=== PATIENT | male | born 1965 | race Caucasian/White ===

== ENCOUNTER → 2018-02-24 | Outpatient (CLI) | payer MEDICAID ==
[~2018-02-24] MED LIST: NOHOMEMEDICATIONS; PRILOSEC40 MG PO; ZOFRAN ODT4 MG PO
--- NOTE | 2018-02-28 22:40 | PROC ---
[address] [address] PROCEDURE REPORT Name: ZULMA MELARA Room: [facility]#: [id number] Admission: 02/24/18 Attend Phys: Fredrick Houston MD Discharge: Date of : 63 Report #: [id number] THIS REPORT FOR: //name// CC: PAKO Fu MD DATE OF PROCEDURE: 02/24/2018 RADIATION ONCOLOGY PROCEDURE NOTE REFERRING PHYSICIANS: Include: 1. Dr. Angela Fu. 2. Dr. Arreguin. 3. Dr. Sherman. 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 PROCEDURE: Nasopharyngolaryngoscopy. FINDINGS: On nasopharyngolaryngoscopy, after application of 2% viscous lidocaine orally and 2% viscous lidocaine to the right nostril, the nasopharynx had no suspicious visible lesions. The posterior oropharynx had no suspicious visible lesions. The patient had ulcerated mucosa involving the left mid to anterior left true vocal cord and the anterior portion of the right true vocal cord. The true vocal cords appear to have normal mobility, so it is consistent with an early vocal cord cancer, a T1 N0 M0 vocal cord cancer, and the patient is being set up for treatment. <ELECTRONICALLY SIGNED> By: Fredrick Houston MD 02/28/18 2240 1233 [id number] yocasta Chavarria
--- NOTE | 2018-02-28 23:23 | CON ---
[address] [address] CONSULTATION Name: ZULMA MELARA Room: [facility]#: [id number] Admission: 02/24/18 Attend Phys: Fredrick Houston MD Discharge: Date of : 63 Report #: [id number] THIS REPORT FOR: //name// CC: Dr. PAKO Arreguin DATE OF CONSULTATION: 02/24/2018 REFERRING PHYSICIANS: Dr. Angela Fu, Dr. Arreguin and Dr. Sherman. Telephone is [phone]. 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 HISTORY OF PRESENT ILLNESS: The patient had hoarseness of the voice for approximately 4 months. He was ultimately referred to his Ear, Nose and Throat physician, Dr. Fu, and he does have a smoking history. She performed a laryngoscopy and found irregular slightly ulcerated mucosa involving the left mid cord and there was also irregular mucosa involving the anterior right true vocal cord. Those areas were biopsied and were consistent with invasive poorly differentiated squamous cell carcinoma. The patient was referred for consideration for definitive radiation therapy. PAST MEDICAL HISTORY AND PAST SURGICAL HISTORY: He had foot surgery at [facility] 02/09/2017. He had hernia surgery in 08/2017. He had back surgery in [facility] in 2000. He has arthritis. MEDICATIONS: Include losartan/hydrochlorothiazide. 7.5 mg, meloxicam per day, cyclobenzaprine, cetirizine as needed, fluticasone. He is using nicotine patches and Chantix to quit smoking, though he still smokes about 6 cigarettes per day. ALLERGIES: CODEINE CAUSES A RASH, THOUGH HE HAS TOLERATED PERCOCET IN THE PAST. FAMILY HISTORY: Mother had hypertension. SOCIAL HISTORY: The patient works in construction. He is single. He has 2 daughters. Ethanol: he drinks ethanol occasionally, in the past he drank up to 12 cans of beer a day, but he has cut back [place] [address] CONSULTATION Name: ZULMA MELARA Room: [facility]#: [id number] Admission: 02/24/18 Attend Phys: Fredrick Houston MD Discharge: Date of : 63 Report #: [id number] containing drinks occasionally. He has smoked for 25 years, about a half pack a day. He is trying to quit, and he is down to 6 cigarettes a day. REVIEW OF SYSTEMS: GENERAL: He denied having any fevers or chills. SKIN: He denied having color changes or itching. LYMPH NODES: He denied having enlarged or painful glands in the neck. ENDOCRINE: He denied having any hot or cold intolerance. HEMATOLOGY/IMMUNOLOGY: He denied having anemia or recent bleeding. MUSCULOSKELETAL: He does have arthritis in the knees, wrists, and back pain. HEAD AND NECK: He has had hoarseness of the voice for about 4-5 months. RESPIRATORY: Has a nonproductive cough that is intermittent for the last 2 months. CARDIOVASCULAR: He denied having any palpitations. GASTROINTESTINAL: He denied having nausea or vomiting. NEUROLOGIC: He denied having any focal weakness. PHYSICAL EXAMINATION: VITAL SIGNS: The patient weighed 211.2 pounds, height was 6 feet 4 inches, blood pressure 140/103, and his primary care physician just recently adjusted his antihypertensive medication; pulse 106, oxygen saturation 96%, respirations 18. LYMPH NODES: The patient had no palpable cervical or supraclavicular lymphadenopathy. EYES: Pupils were equal, round, reactive to light and accommodation. Extraocular movements wereintact. HEAD, EARS, NOSE AND THROAT: Mouth had no suspicious visible lesions or suspicious palpable lesions. On nasopharyngolaryngoscopy, after application of a small amount of 2% viscous lidocaine orally and 2% viscous lidocaine to the right nostril, there were no visible lesions in the nasopharynx or posterior oropharynx. The true vocal cords were normally mobile bilaterally with an ulcerated lesion involving the mid left true vocal cord, and the anterior right true vocal cord and the anterior commissure. HEART: Had a regular rate and rhythm without murmur. LUNGS: were clear to auscultation. ABDOMEN: Not tender. Spleen was not palpable. Liver was at the costal margin. EXTREMITIES: Had no clubbing, cyanosis or edema. NEUROLOGIC: Cranial nerves II to XII are intact. Sensation was intact. The patient had 5/5 strength in his extremities. RADIOLOGIC DATA: The patient had a neck CT done on 02/02/2018, which showed [address] [address] CONSULTATION Name: ZULMA MELARA [id number] Admission: 02/24/18 Attend Phys: Fredrick Houston MD Discharge: Date of : 63 Report #: [id number] mild asymmetric soft tissue thickening of the left vocal cord. There was no cervical lymphadenopathy. 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 The patient was told that his treatment options are definitive radiation therapy, reserving surgery for salvage versus surgical resection and using radiation therapy as an adjuvant treatment when indicated. The efficacy of radiation therapy for early vocal cord cancer can be found in the study by [employer]. In that study they had 180 patients and the patients who received 2 Gy a day for approximately 6 weeks had a local control rate of 77%, and when they received a higher dose per day, which was 225 cGy per day, the local control rate went up to 92%. So, the risks, benefits and logistics of radiation therapy were discussed with the patient in detail; he gave his witnessed, informed consent to proceed with radiation therapy. He will be scheduled for simulation. He was encouraged to quit smoking. Thank you very much for this consult. <ELECTRONICALLY SIGNED> By: Fredrick Houston MD 02/28/18 2323 1240 [id number] Houston MD /nt
== END ==
LOC: M.RTH 04:32
DX: Z08 Encounter for follow-up examination after completed treatment for malignant neoplasm (principal); C32.9 Malignant neoplasm of larynx, unspecified

== ENCOUNTER → 2018-08-27 | Outpatient (CLI) | payer MEDICAID ==
--- NOTE | ~2018-08-27 | ONC ---
[address] [address] RADIATION ONCOLOGY NOTE Name: ZULMA MELARA Room: [facility]#: [id number] Admission: 08/27/18 Attend Phys: Fredrick Houston MD Discharge: Date of : 63 Report #: [id number] THIS REPORT FOR: //name// CC: PAKO Houston DATE OF SERVICE: 08/27/2018 REFERRING PHYSICIANS: Angela Fu MD. Dr. Sherman. Dr. Arreguin. 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 He completed definitive radiation therapy on 04/23/2018. INTERVAL NOTE: The patient's voice has a good quality. He is eating regular foods. He continues to smoke and then he says sometimes he will get a throat irritation that may cause some mild discomfort when he swallows. He says he is getting upper dentures on 09/06/2018. He does have his lower teeth. He says he is due to see Dr. Fu in the next few days. MEDICATIONS: Losartan and ibuprofen. SOCIAL HISTORY: Cigarettes: The patient continues to smoke about 5-6 cigarettes a day and he had smoked about a half a pack of cigarettes a day since about 1994. REVIEW OF SYSTEMS: GASTROINTESTINAL: He has a good appetite. He is eating a regular diet. RESPIRATORY: He was not short of breath. PHYSICAL EXAMINATION: VITAL SIGNS: The patient weighed 206 pounds on 08/27/2018. He was 215 pounds and 12 ounces on 05/07/2018. On 08/27/2018, blood pressure is 105/74, pulse 94, respirations 16, oxygen saturation 98%. LYMPH NODES: He had no cervical, supraclavicular lymphadenopathy. HEAD, EYES, EARS, NOSE, AND THROAT: Mouth had no suspicious visible lesions or suspicious palpable lesions. On nasopharyngolaryngoscopy, after application of a small amount of 2% viscous lidocaine orally and 2% viscous lidocaine to the right nostril via cotton swab, there were no suspicious visible lesions in the nasopharynx or posterior oropharynx. True vocal cords were normally mobile bilaterally without any visible lesions. HEART: Had a regular rate and rhythm without murmur. LUNGS: [place] [address] RADIATION ONCOLOGY NOTE Name: ZULMA MELARA Room: [facility]#: [id number] Admission: 08/27/18 Attend Phys: Fredrick Houston MD Discharge: Date of : 63 Report #: [id number] LABORATORY DATA: From 08/10/2018, hemoglobin was 15.3, platelets were 318,000, white blood cell count was 4.2 and sodium was 134, potassium was 3.2. TSH was 0.26, free T4 was 1.1. RADIOLOGIC DATA: He had a neck and chest CT on 08/10/2018 and that revealed no local tumor recurrence in the neck. Chest had no new enlarging pulmonary nodules. He has mild right hilar lymphadenopathy which was thought to be reactive and continued attention on followup imaging was recommended. ASSESSMENT AND PLAN: 1. History of true vocal cord cancer. There is no evidence of vocal cord cancer at this time. The patient indicated he was seeing his ear, nose and throat physician, Dr. Fu, in a few days. He was given a requisition for basic metabolic panel, a TSH in 10/2018 and a neck and chest CT will be ordered as well and he will be asked to follow up with me afterwards. 2. Cigarette smoking. The patient was urged to quit smoking cigarettes. Again, his TSH was 0.26 on 08/10/2018, so it was not elevated. 3. Nutrition. He said his weight was stable at this time that he is eating well. So, I am assuming that is going to stabilize. 4. Hypokalemia. The patient was prescribed 20 mEq potassium supplements on 08/10/2018 and he was told to increase his intake of potassium rich foods such as sweet potatoes, potatoes with skins, bananas and a basic metabolic panel was ordered in 3 months. He was asked to follow up with me afterwards. Thank you for allowing me to participate in the care of this patient. By: 1111 0034Dsarah Houston MD /shannon
--- NOTE | ~2018-08-27 | ONC ---
[place] [address] RADIATION ONCOLOGY NOTE Name: ZULMA MELARA Room: [facility]#: [id number] Admission: 08/27/18 Attend Phys: Fredrick Houston MD Discharge: Date of : 63 Report #: [id number] THIS REPORT FOR: //name// CC: PAKO Houston DATE OF SERVICE: 08/27/2018 REFERRING PHYSICIANS: Angela Fu MD. Dr. Arreguin. Dr. Jeffers. 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 The radiation treatments were completed on 04/23/2018. PROCEDURE: Nasopharyngolaryngoscopy. FINDINGS: On nasopharyngolaryngoscopy, after application of 2% viscous lidocaine orally and 2% viscous lidocaine to the right nostril, the nasopharynx had no suspicious visible lesions and the posterior oropharynx had no suspicious visible lesions. The true vocal cords were normally mobile bilaterally. There were no suspicious visible lesions involving the vocal cords. There is no evidence of head and neck cancer. Thank you for allowing me to participate in the care of this patient. By: 1101 0017Fredrick Houston MD /nt
== END ==
LOC: M.RTH 09:55
DX: Z08 Encounter for follow-up examination after completed treatment for malignant neoplasm (principal); E87.6 Hypokalemia; F17.200 Nicotine dependence, unspecified, uncomplicated; Z85.818 Personal history of malignant neoplasm of other sites of lip, oral cavity, and pharynx

== ENCOUNTER → 2018-12-03 | Outpatient (CLI) | payer MEDICAID ==
--- NOTE | 2018-12-11 18:23 | ONC ---
[place] [address] RADIATION ONCOLOGY NOTE Name: ZULMA MELARA Room: [facility]#: [id number] Admission: 12/03/18 Attend Phys: Fredrick Houston MD Discharge: Date of : 63 Report #: [id number] THIS REPORT FOR: //name// CC: Dr. Enrique Arreguin DATE OF PROCEDURE: 12/03/2018 REFERRING PHYSICIAN: Dr. Arreguin and Dr. Angela Fu. PRIMARY CARE PHYSICIAN: Dr. Enrique Sherman [facility], phone is [phone]. PRIMARY SITE AND HISTOPATHOLOGY: The patient received definitive radiation therapy for a T1N0M0 true vocal cord cancer. Radiation treatments were completed on 04/23/2018. PROCEDURE: Nasopharyngolaryngoscopy. FINDINGS: On nasopharyngolaryngoscopy, after application of 2% viscous lidocaine orally and 2% viscous lidocaine to the right nostril, the nasopharynx had no suspicious visible lesions and the posterior oropharynx had no suspicious visible lesions. The true vocal cords were normally mobile bilaterally. There were no suspicious visible lesions involving the vocal cords. There was no evidence of head and neck cancer. Thank you for allowing me to participate in the care of this patient. <ELECTRONICALLY SIGNED> By: Fredrick Houston MD 12/11/18 1823 1104 0307MD yocasta Chavarria
--- NOTE | 2018-12-11 19:01 | ONC ---
[place] [address] RADIATION ONCOLOGY NOTE Name: ZULMA MELARA Room: [facility].#: [id number] Admission: 12/03/18 Attend Phys: Fredrick Houston MD Discharge: Date of : 63 Report #: [id number] THIS REPORT FOR: //name// CC: Dr. Enrique Arreguin DATE OF SERVICE: 12/03/2018 REFERRING PHYSICIANS: Dr. Angela Fu; Dr. Zulma Arreguin; Dr. Enrique Sherman. [facility] phone is [phone]. 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 He completed definitive radiation therapy on 04/23/2018. INTERVAL NOTE: The patient has a good voice quality. He is eating a regular diet. He is transitioning to electronic cigarettes to try to avoid tobacco. He says that he does have some sinus issues and that he will be seeing his ear, nose and throat physician, Dr. Fu, later this month. Overall he feels good. He was scheduled to get his upper dentures earlier this year. MEDICATIONS: Cetirizine, losartan and ibuprofen as needed. SOCIAL HISTORY: Cigarettes; he is transitioning to electronic cigarettes. He has smoked about 1/2 a pack to a pack per day since about 1994. REVIEW OF SYSTEMS: GASTROINTESTINAL: He has a good appetite, he is eating a regular diet. RESPIRATORY: He was not short of breath during his appointment. PHYSICAL EXAMINATION: VITAL SIGNS: The patient weighed 205 pounds on 12/03/2018. He was 206 pounds on 08/27/2018. On 12/03/2018, pulse was 85, respirations 20, oxygen saturation 98% and blood pressure 140/84. LYMPH NODES: He had no palpable cervical or supraclavicular lymphadenopathy. HEAD, EYES, EARS, NOSE AND THROAT: Mouth had no suspicious visible lesions or suspicious palpable lesions. On nasopharyngolaryngoscopy, after application of a small amount of 2% viscous lidocaine orally and 2% viscous lidocaine to the right nostril via a cotton swab, there are no suspicious visible lesions in the nasopharynx or posterior pharynx. The true vocal cords were normally mobile bilaterally [place] [address] RADIATION ONCOLOGY NOTE Name: ZULMA MELARA Room: [facility]#: [id number] Admission: 12/03/18 Attend Phys: Fredrick Houston MD Discharge: Date of : 63 Report #: [id number] HEART: Had a regular rate and rhythm without murmur. LUNGS: were clear to auscultation. LABORATORY DATA: From 11/08/2018; sodium was 135; potassium 3.3, it was 3.2 on 08/10/2018. On 11/08/2018, BUN was 19, creatinine was 1.2 and TSH was 0.39. RADIOLOGIC DATA: Neck and chest CT from 11/08/2018; neck had no evidence of local tumor recurrence or cervical lymphadenopathy. Chest had no new enlarging pulmonary nodules. There was no significant thoracic lymphadenopathy. ASSESSMENT AND PLAN: 1. History of true vocal cord cancer- There is no evidence of true vocal cord cancer at this time. The patient indicated he was seeing Dr. Fu later this month. A Basic metabolic panel was ordered in 01/2019. The patient was asked to schedule a follow-up appointment to see me after the january lab work was complete. 2. Cigarette smoking- The patient is transitioning to electronic cigarettes. He was urged to quit smoking cigarettes. 3. Hypokalemia-The patient was given a prescription for potassium supplements to take for the next 5 days. He was encouraged to increase his intake of potassium rich foods such as potatoes with skins, sweet potatoes and bananas. He was referred to his primary care physician, Dr. Sherman, to manage this issue and a basic metabolic panel was ordered in 01/2019 as well as a TSH and he was asked to schedule a follow up appointment with me afterwards. 4. A small retention cyst in the left maxillary sinus found on his neck CT -- the patient will be seeing his ear, nose, throat physician, Dr. Angela Fu to manage this issue. Thank you for allowing me to participate in the care of this patient. <ELECTRONICALLY SIGNED> By: Fredrick Houston MD 12/11/18 1901 [id number] Houston MD /nt
== END ==
LOC: M.RTH 04:48
DX: Z08 Encounter for follow-up examination after completed treatment for malignant neoplasm (principal); E87.6 Hypokalemia; F17.210 Nicotine dependence, cigarettes, uncomplicated; J34.1 Cyst and mucocele of nose and nasal sinus; Z85.21 Personal history of malignant neoplasm of larynx

== ENCOUNTER → 2019-02-25 | Outpatient (CLI) | payer MEDICAID ==
--- NOTE | ~2019-02-25 | ONC ---
[place] [address] RADIATION ONCOLOGY NOTE Name: ZULMA MELARA Room: [facility]#: [id number] Admission: 02/25/19 Attend Phys: Fredrick Houston MD Discharge: Date of : 63 Report #: [id number] THIS REPORT FOR: //name// CC: Enrique Houston DATE OF SERVICE: 02/25/2019 REFERRING PHYSICIANS: Angela Fu MD; Zulma Arreguin DPM; Enrique Sherman MD [facility] phone is [phone]. 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 He completed definitive radiation therapy on 04/23/2018. INTERVAL NOTE: The patient has stable, good voice quality. He is eating a regular diet. Sometimes smokes electronic cigarettes. He avoids regular cigarettes. He continues to follow up with his ear, nose, throat physician, Dr. Angela Fu. He was found to have a low potassium, so he was prescribed potassium supplements and encouraged to increase the potassium intake in his diet. MEDICATIONS: Cetirizine, losartan, and ibuprofen as needed. SOCIAL HISTORY: Cigarettes, he does not smoke cigarettes at this time. He sometimes ____ electronic cigarettes. He quit smoking around earlier part of 2018. He used to smoke about a half pack a day from about 7916-4399. REVIEW OF SYSTEMS: GASTROINTESTINAL: He has a good appetite. He is eating a regular diet. RESPIRATORY: He was not short of breath during his appointment. PHYSICAL EXAMINATION: VITAL SIGNS: The patient weighed 211.4 pounds on 02/25/2019 and 205 pounds on 12/03/2018 and on 02/25/2019 blood pressure was 105/80, pulse 96, respirations 18, and oxygen saturation 93%. LYMPH NODES: He had no palpable cervical or supraclavicular lymphadenopathy. HEAD, EYES, EARS, NOSE, THROAT: Mouth has no suspicious visible lesions or suspicious palpable lesions. On nasopharyngolaryngoscopy, after application of a small amount of 2% viscous lidocaine orally and 2% viscous lidocaine to the right nostril via cotton swab, there were no visible lesions in the nasopharynx or posterior pharynx. True vocal cords are normally mobile bilaterally. HEART: Had a regular rate and rhythm, without murmur. LUNGS: [place] [address] RADIATION ONCOLOGY NOTE Name: ZULMA MELARA Room: [facility]#: [id number] Admission: 02/25/19 Attend Phys: Fredrick Houston MD Discharge: Date of : 63 Report #: [id number] LABORATORY DATA: From 02/18/2019, sodium was 136, potassium was 2.8, BUN 9, and creatinine 0.91. TSH was 0.32, free T4 was 0.7. He then was prescribed potassium supplements and his metabolic panel was repeated on 02/23/2019 and his sodium was 139, potassium was 3.8, BUN 9, and creatinine 0.94. RADIOLOGIC DATA: He had a neck and chest CT on 11/08/2018. Neck CT did reveal no evidence of local tumor recurrence or cervical lymphadenopathy. Chest CT showed no new enlarging pulmonary nodules. No significant thoracic lymphadenopathy. ASSESSMENT AND PLAN: 1. History of true vocal cord cancer. There is no evidence of true vocal cord cancer at this time. The patient indicated he is seeing his ear, nose, throat physician, Dr. Fu in 02/2019 and he was given a requisition for basic metabolic panel and a TSH in 05/2019. He is asked to schedule a followup appointment to see me afterwards. 2. Hypertension. The patient takes losartan and that is managed by his referring physicians. 3. Hypokalemia. The patient was given potassium supplements and his potassium normalized. He was encouraged to increase his intake of potassium rich foods in his diet and he was going to be seeing his primary care physician in about 5 days. Thank you for allowing me to participate in the care of this patient. By: 1216 0043Dsarah Houston MD /shannon
--- NOTE | ~2019-02-25 | ONC ---
[place] [address] RADIATION ONCOLOGY NOTE Name: ZULMA MELARA Room: [facility]#: [id number] Admission: 02/25/19 Attend Phys: Fredrick Houston MD Discharge: Date of : 63 Report #: [id number] THIS REPORT FOR: //name// CC: Enrique Houston DATE OF SERVICE: 02/25/2019 RADIATION/ONCOLOGY PROCEDURE NOTE REFERRING PHYSICIANS: Dr. Enrique Sherman, Dr. Angela Fu and Dr. Arreguin. 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 Radiation treatments were completed on 04/23/2018. PROCEDURE: Nasopharyngolaryngoscopy. FINDINGS: On nasopharyngolaryngoscopy after application of 2% viscous lidocaine orally and 2% viscous lidocaine to the right nostril, nasopharynx had no suspicious visible lesions and the posterior oropharynx had no suspicious visible lesions. True vocal cords are normally mobile bilaterally. There were no suspicious visible lesions involving the vocal cords. There was no evidence of head and neck cancer. Thank you for allowing me to participate in the care of this patient. By: 1119 2318Fredrick Houston MD /nt
== END ==
LOC: M.RTH 04:42
DX: Z08 Encounter for follow-up examination after completed treatment for malignant neoplasm (principal); I10 Essential (primary) hypertension; E87.6 Hypokalemia; Z85.21 Personal history of malignant neoplasm of larynx; Z87.891 Personal history of nicotine dependence

== ENCOUNTER → 2019-06-17 | Outpatient (CLI) | payer MEDICAID ==
--- NOTE | ~2019-06-17 | ONC ---
[place] [address] RADIATION ONCOLOGY NOTE Name: ZULMA MELARA Room: [facility]#: [id number] Admission: 06/17/19 Attend Phys: Fredrick Houston MD Discharge: Date of : 63 Report #: [id number] THIS REPORT FOR: //name// CC: Dr. Enrique Arreguin from Orthopedics RADIATION-ONCOLOGY FOLLOWUP NOTE DATE OF SERVICE 06/17/2019 REFERRING PHYSICIANS: 1. Dr. Enrique Sherman. 2. Dr. Arreguin from Orthopedics. 3. Angela Fu MD. [facility], phone is [phone]. 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 He completed definitive radiation therapy on 04/23/2018. INTERVAL NOTE: The patient has a stable and fair voice quality. He always had slight hoarseness of the voice. He is eating a regular diet. He has tried to switch to electronic cigarettes from smoking regular cigarettes. He indicated that he has an appointment with his Ear, Nose, Throat physician, Dr. Angela Fu in a few weeks in 06/2019. MEDICATIONS: Losartan, cetirizine and ibuprofen as needed. SOCIAL HISTORY: Cigarettes: he does not smoke cigarettes at this time. He switched to electronic cigarettes, so he quit smoking around the middle of 2018. He used to smoke about a half pack to whole pack a day for somewhere between 1988 to 2018. REVIEW OF SYSTEMS: GASTROINTESTINAL: He has a good appetite. He is eating a regular diet. RESPIRATORY: He was not short of breath during his appointment. PHYSICAL EXAMINATION: VITAL SIGNS: The patient weighed 232 pounds on 06/17/2019 and 211.4 pounds on 02/25/2019. On 06/17/2019, blood pressure was 137/94, pulse 89, respirations 18, oxygen saturation was 96%. LYMPH NODES: The patient had no palpable cervical or supraclavicular lymphadenopathy. HEAD, EYES, EARS, NOSE AND THROAT: Mouth [place] [address] RADIATION ONCOLOGY NOTE Name: ZULMA MELARA Room: [facility]#: [id number] Admission: 06/17/19 Attend Phys: Fredrick Houston MD Discharge: Date of : 63 Report #: [id number] suspicious palpable lesions. On nasopharyngolaryngoscopy, after application of a small amount of 2% viscous lidocaine orally and 2% viscous lidocaine to the right nostril via a cotton swab, there were no visible lesions in the nasopharynx or posterior oropharynx. The true vocal cords were normally mobile bilaterally. They did have some whitish discoloration anteriorly. HEART: Had a regular rate and rhythm without murmur. LUNGS: Clear to auscultation. LABORATORY DATA: From 06/14/2019, sodium was 139, potassium was 4.2, BUN 11, creatinine 0.95. His calcium was elevated at 11.5. His TSH was lower than normal at 0.2 and his free T4 was normal at 0.7 with normal range 0.6-1.6. ASSESSMENT AND PLAN: 1. History of true vocal cord cancer. The patient has normal vocal cord mobility with some white discoloration in the anterior portion of the vocal cords. The differential for that is that it could be due to post-treatment changes from radiation therapy and that is very likely cause. Could also be due to candidiasis versus leukoplakia versus a recurrence. So, he was given a prescription for fluconazole if in case it is due to candidiasis and he said he had an appointment with his Ear, Nose and Throat physician, Dr. Fu in a few weeks in 06/2019 and I also communicated via the [employer] system to let her know about discoloration, so she can evaluate and manage that issue. Lab work will be ordered in about 4-5 months and a neck CT will be ordered and the patient will be asked to schedule a followup appointment to see me afterwards. 2. Hypertension. The patient takes losartan and that is managed by his referring physicians. 3. Hypercalcemia. The patient will be referred to Endocrinology to manage that issue. 4. Low TSH level. Again, the patient will be referred to Endocrinology to manage that issue. 5. History of cigarette smoking. A screening chest CT will be ordered in case he qualifies for that as a screening exam. Thank you for allowing me to participate in the care of this patient. By: [id number] [id number] Houston MD /shannon
--- NOTE | ~2019-06-17 | ONC ---
[place] [address] RADIATION ONCOLOGY NOTE Name: ZULMA MELARA Room: [facility]#: [id number] Admission: 06/17/19 Attend Phys: Fredrick Houston MD Discharge: Date of : 63 Report #: [id number] THIS REPORT FOR: //name// CC: Enrique Houston DATE OF SERVICE: 06/17/2019 REFERRING PHYSICIANS: Include Dr. Arvizu, Dr. Sanchez, Dr. Enrique Sherman. 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 Radiation treatments were completed on 04/23/2019. PROCEDURE: Nasopharyngolaryngoscopy. FINDINGS: On nasopharyngolaryngoscopy, after application of 2% viscous lidocaine orally, 2% viscous lidocaine to the right nostril, the nasopharynx had no suspicious visible lesions and the posterior oropharynx had no suspicious visible lesions and the true vocal cords are normally mobile bilaterally. The patient did have some whitish discoloration in the anterior portion of the vocal cords. This could be due to radiation therapy changes versus candidiasis versus leukoplakia. The patient indicated he is going to be seeing his ear, nose and throat physician, Dr. Murray in a few weeks to assess that area as well and he was prescribed fluconazole in case it is from candidiasis. Thank you for allowing me to participate in the care of this patient. By: 1011 1036MD yocasta Chavarria
== END ==
LOC: M.RTH 04:59
DX: Z08 Encounter for follow-up examination after completed treatment for malignant neoplasm (principal); I10 Essential (primary) hypertension; R82.994 Hypercalciuria; Z79.899 Other long term (current) drug therapy; Z87.891 Personal history of nicotine dependence

== ENCOUNTER → 2019-11-25 | Outpatient (CLI) | payer MEDICAID ==
--- NOTE | 2019-12-03 19:47 | ONC ---
[place] [address] RADIATION ONCOLOGY NOTE Name: ZULMA MELARA Room: [facility].#: [id number] Admission: 11/25/19 Attend Phys: Fredrick Houston MD Discharge: Date of : 63 Report #: [id number] THIS REPORT FOR: //name// CC: Dr. Enrique Van DATE OF SERVICE: 11/25/2019 RADIATION/ONCOLOGY PROCEDURE NOTE REFERRING PHYSICIANS: Include Zulma Arreguin DPM; Angela Fu MD and Enrique Sherman MD Also, he has been seeing Dr. Saman Van. [facility] phone is [phone]. 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 Radiation treatments were completed on 04/23/2019. PROCEDURE: Nasopharyngolaryngoscopy. FINDINGS: On nasopharyngolaryngoscopy, after application of 2% viscous lidocaine orally and 2% viscous lidocaine to the right nostril, the nasopharynx had no suspicious visible lesions and the posterior oropharynx had no suspicious visible lesions and the true vocal cords were normally mobile bilaterally. There was no evidence of true vocal cord cancer. There was no evidence of any other head and neck cancer. Thank you for allowing me to participate in the care of this patient. <ELECTRONICALLY SIGNED> By: Fredrick Houston MD 12/03/19 1947 1102 [id number] Houston MD /nt
--- NOTE | 2019-12-03 20:34 | ONC ---
[place] [address] RADIATION ONCOLOGY NOTE Name: ZULMA MELARA Room: [facility]#: [id number] Admission: 11/25/19 Attend Phys: Fredrick Houston MD Discharge: Date of : 63 Report #: [id number] THIS REPORT FOR: //name// CC: Enrique Nuñez MD DATE OF SERVICE: 11/25/2019 RADIATION/ONCOLOGY FOLLOWUP NOTE REFERRING PHYSICIANS: Include Enrique Sherman MD; Zulma rAreguin DPM from Orthopedics; and Angela Fu MD and also he has an mattress maker who is Saman Van MD [facility] phone is [phone]. 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 He completed definitive radiation therapy on 04/23/2018. INTERVAL NOTE: The patient had mild hypokalemia and he was prescribed a potassium supplement, which he finished and he was told to increase his intake of potassium-rich foods such as potatoes with skins, bananas. His voice quality is stable. He has a fair quality of his voice. He is able to eat a regular diet. He has seen his mattress maker, Dr. Alexander, at [facility] on 07/13/2019 and he was found to have low TSH levels and his free T4 was in the low normal range. He was found to be hypercalcemic. He was clinically euthyroid. The patient said that his mattress maker started him on thyroid medicine. He also checks his parathyroid hormone levels and calcium levels and the patient said he is going to be seeing his mattress maker in about 6 weeks. He said his appointment with his Ear, Nose and Throat physician, Dr. Fu, was postponed until 12/2019, partly because of the COVID-19 issue. MEDICATIONS: He takes aspirin about once a day. He takes Colace as needed. He is also taking Flexeril 10 mg 3 times a day, Flonase twice a day as needed. He takes hydrochlorothiazide/losartan 12.5 mg/50 mg oral tablets daily. He takes meloxicam 1 a day and he takes Zyrtec daily as needed. SOCIAL HISTORY: Cigarettes: He switched to electronic cigarettes in the middle of 2018. He started smoking when he was a teenager [place] [address] RADIATION ONCOLOGY NOTE Name: ZULMA MELARA Room: [facility]#: [id number] Admission: 11/25/19 Attend Phys: Fredrick Houston MD Discharge: Date of : 63 Report #: [id number] pack to a pack a day until the middle 2018 when he switched to electronic cigarettes. He says he is scheduled for a screening chest CT on 11/28/2019. REVIEW OF SYSTEMS: GASTROINTESTINAL: He has a good appetite. He is eating a regular diet. RESPIRATORY: He was not short of breath during his appointment. PHYSICAL EXAMINATION: VITAL SIGNS: The patient weighed 240 pounds on 11/25/2019 and 232 pounds on 06/17/2019. On 11/25/2019, blood pressure was 139/87, pulse 99, oxygen saturation was 98%, respirations were 20, temperature was 98 degrees Fahrenheit. LYMPH NODES: The patient had no palpable cervical or supraclavicular lymphadenopathy. HEAD, EYES, EARS, NOSE AND THROAT EXAMINATION: Mouth had no suspicious visible lesions or suspicious palpable lesions on nasopharyngolaryngoscopy. After application of a small amount of 2% viscous lidocaine orally and 2% viscous lidocaine into the right nostril via a cotton swab,there were no visible lesions in the nasopharynx or posterior oropharynx. The true vocal cords were normally mobile bilaterally and there were no suspicious visible lesions. HEART: Had a regular rate and rhythm without murmur. LUNGS: were clear to auscultation. LABORATORY DATA: From 11/07/2019, sodium was 139, potassium was 3.3, BUN 16, creatinine 0.86. TSH was less than 0.01 on 11/07/2019 and free T4 was 1.2 on 11/07/2019. RADIOLOGIC DATA: The patient had a neck CT on 11/07/2019 which revealed post-therapeutic changes in the supraglottic larynx and hypopharynx without evidence of new or recurrent neck mass or neck lymphadenopathy. ASSESSMENT AND PLAN: 1. History of true vocal cord cancer- There is no evidence of vocal cord cancer at this time. The patient indicated that he is scheduled to see his Ear, Nose, Throat physician, Dr. Fu, around 12/2019. I asked the patient to follow up with me in about 6 months. 2. Hypertension- The patient takes losartan and that is managed by his referring physicians. 3. Hypercalcemia. The patient is following up with Endocrinology with regards to this issue. 4. Low TSH levels- The patient is following up with Endocrinology to manage this issue. He said he was started on some type of thyroid medication. A TSH level will be ordered in about 6 months and the patient was asked to [place] [address] RADIATION ONCOLOGY NOTE Name: ZULMA MELARA Room: [facility].#: [id number] Admission: 11/25/19 Attend Phys: Fredrick Houston MD Discharge: Date of : 63 Report #: [id number] 5. Mild hypokalemia- The patient was given potassium supplement and told to increase his intake of potassium-rich foods to help normalize his potassium and a basic metabolic panel was ordered in about 6 months and the patient was asked to schedule a follow up appointment with me afterwards. 6. History of cigarette smoking- The patient says he is due for his screening chest CT exam on 11/28/2019. Thank you for allowing me to participate in the care of this patient. <ELECTRONICALLY SIGNED> By: Fredrick Houston MD 12/03/19 2034 1117 [id number] Houston MD /nt
== END ==
LOC: M.RTH 11-18 09:45
PROVIDERS: ATTEND Radiology Radiation Oncology
DX: Z51.0 Encounter for antineoplastic radiation therapy (principal); I10 Essential (primary) hypertension; E87.6 Hypokalemia; F17.210 Nicotine dependence, cigarettes, uncomplicated; Z79.899 Other long term (current) drug therapy; Z85.21 Personal history of malignant neoplasm of larynx

== ENCOUNTER → 2020-05-18 | Outpatient (CLI) | payer MEDICARE, MEDICAID ==
--- NOTE | 2020-05-26 22:36 | ONC ---
[place] [address] RADIATION ONCOLOGY NOTE Name: ZULMA MELARA Room: [facility]#: [id number] Admission: 05/18/20 Attend Phys: Fredrick Houston MD Discharge: Date of : 63 Report #: [id number] THIS REPORT FOR: //name// CC: Enrique Arreguin DPM DATE OF PROCEDURE: 05/18/2020 RADIATION ONCOLOGY PROCEDURE NOTE REFERRING PHYSICIANS: Dr. Alexander; Angela Fu MD; Dr. Enrique Sherman; Dr. Perry, primary care physician. He also has a doctor of Podiatry medicine, Zulma Arreguin DPM. [facility] phone is [phone]. 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 Radiation treatments were completed on 04/23/2019. PROCEDURE: Nasopharyngolaryngoscopy. FINDINGS: On nasopharyngolaryngoscopy, after application of 2% viscous lidocaine orally and 2% viscous lidocaine to the right nostril, the nasopharynx had no suspicious visible lesions and the posterior oropharynx had no suspicious visible lesions. The true vocal cords and the supraglottic area, had some supraglottic edema present, which obscured the view of that area and he also had an irregular heart rate. He was sent to the [facility] for further evaluation on the day he was seen on 05/18/2020. Thank you for allowing me to participate in the care of this patient. <ELECTRONICALLY SIGNED> By: Fredrick Houston MD 05/26/20 2236 1058 1113Dsarah Houston MD /nt
--- NOTE | 2020-05-26 22:51 | ONC ---
[place] [address] RADIATION ONCOLOGY NOTE Name: ZULMA MELARA Room: [facility]#: [id number] Admission: 05/18/20 Attend Phys: Fredrick Houston MD Discharge: Date of : 63 Report #: [id number] THIS REPORT FOR: //name// CC: Dr. Enrique Arreguin DPM DATE OF VISIT: 05/18/2020 RADIATION ONCOLOGY FOLLOWUP NOTE REFERRING PHYSICIANS: Include Dr. Enrique Sherman, Dr. Angela Fu, Dr. Perry is his primary care physician at [facility], Dr. Alexander is the custom home installer and his nurse companion is Zulma Arreguin DPM. [facility] phone is [phone]. 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 He completed definitive radiation therapy on 04/23/2018. INTERVAL NOTE: The patient indicated that he had hoarseness of the voice since about 3 weeks ago. He has also had some odynophagia as well. He did say he saw his Ear, Nose and Throat physician, Dr. Fu in 12/2019. He was started on antibiotics about 3 weeks ago. SOCIAL HISTORY: He used to smoke cigarettes when he was a teenager and he smoked half a pack a day until 2019 when he switched to electronic cigarettes. MEDICATIONS: Include Zyrtec as needed, Tylenol as needed, he got the flu vaccine and also midazolam, Benadryl as needed and he has also been on 5 mg of methimazole. His notes from 12/02/2019. REVIEW OF SYSTEMS: GASTROINTESTINAL: He lost some weight since he was last seen as mentioned earlier. He has been started on antibiotics earlier in April at [facility]. RESPIRATORY: His respirations were about 30 when he was seen today. PHYSICAL EXAMINATION: VITAL SIGNS: The patient weighed 227 pounds on 05/18/2020 and 240 pounds on 11/25/2019, on 05/18/2020 blood pressure was 120/77, pulse 96 and irregular, [place] [address] RADIATION ONCOLOGY NOTE Name: ZULMA MELARA Room: [facility]#: [id number] Admission: 05/18/20 Attend Phys: Fredrick Houston MD Discharge: Date of : 63 Report #: [id number] respirations 30, oxygen saturation 96%, temperature 97.3 degrees Fahrenheit. LYMPH NODES: The patient had some enlarged lymph nodes around the thyroid gland in the neck area that appeared to be a bit enlarged. Thyroid appeared to be enlarged. HEAD, EYES, EARS, NOSE AND THROAT: Mouth had no suspicious visible lesions or suspicious palpable lesions. On nasopharyngolaryngoscopy, after application of a small amount of 2% viscous lidocaine orally and 2% viscous lidocaine into the right nostril via a cotton swab, there were no visible lesions in the nasopharynx or posterior oropharynx. The true vocal cords and subglottic larynx did have some supraglottic edema. HEART: Had an irregular rate and rhythm. LUNGS: Had some crackles and mild wheezing. LABORATORY DATA: From 05/14/2020, free T4 was 1.4. TSH was less than 0.01. Sodium was 137, potassium 3.8, BUN 15 and creatinine 0.9. RADIOLOGIC DATA: He had a low dose screening chest CT on 12/13/2019 which revealed scattered pulmonary nodules, which were benign appearing. They recommended a repeat annual low dose screening chest CT in 12 months. ASSESSMENT AND PLAN: 1. Irregular cardiac rhythm -the patient was sent to the [facility] Emergency Room to be evaluated today. I spoke to Dr. Shen in the ER to explain the patient's findings. 2. History of true vocal cord cancer- He had some supraglottic glottic edema. So, he will have a neck and chest CT ordered and referred to his ENT, Dr. Fu then he was asked to schedule a followup appointment with me afterwards. 3. Mild dyspnea- The patient was sent to the [facility] Emergency Room for further evaluation today. 4. Hypertension- The patient takes losartan and that is managed by his referring physicians. 5. Low TSH levels- The patient is getting methimazole by his custom home installer and follows his custom home installer at [facility]. Thank you for allowing me to participate in the care of this patient. <ELECTRONICALLY SIGNED> By: Fredrick Houston MD 05/26/20 2251 [id number] Houston MD /nt
== END | disposition home or self-care (01) ==
LOC: M.RTH 09:45
PROVIDERS: ATTEND Radiology Radiation Oncology
DX: Z08 Encounter for follow-up examination after completed treatment for malignant neoplasm (principal); Z85.21 Personal history of malignant neoplasm of larynx; I10 Essential (primary) hypertension; F17.210 Nicotine dependence, cigarettes, uncomplicated; Z98.890 Other specified postprocedural states; Z79.899 Other long term (current) drug therapy